=== PATIENT | male | born 1950 | race Caucasian/White ===

== ENCOUNTER 2017-03-18 09:33 | Inpatient (IN) ==
[2017-03-18 10:46] LABS: URINE CULTURE NEEDED? NO; URINE MICRO REVIEW NEEDED? NO; URINE SOURCE CLEAN CATCH
[2017-03-18 10:53] LABS: BILIRUBIN URINE NEGATIVE (NEGATIVE); BLOOD URINE NEGATIVE (NEGATIVE); COLOR YELLOW; GLUCOSE URINE NEGATIVE (NEGATIVE); LEUKOCYTES URINE NEGATIVE (NEGATIVE); NITRITE URINE NEGATIVE (NEGATIVE); PROTEIN URINE TRACE mg/dL (NEGATIVE); SP GRAVITY URINE 1.019; TURBIDITY URINE CLEAR (CLEAR); UROBILINOGEN URINE NORMAL (NORMAL)
[2017-03-18 10:54] LABS: UR EPITHELIAL CELLS <10 /HPF (<10); URINE BACTERIA NEGATIVE /HPF; URINE RBC <10 /HPF (<10); URINE WBC <10 /HPF (<10)
[2017-03-18] MEDS ORDERED: NS 1,000 ML IV ONE (14:24)
[2017-03-18] MEDS ORDERED: ZOFRAN IV ONE (15:12)
[2017-03-18 15:31] LABS: MANUAL DIFF NEEDED? NO
[2017-03-18 15:33] LABS: BASO% 0.7 % (0.0-0.8); EOS# 0.13 X1000 (0.0-0.7); EOS% 1.7 % (0.0-10.0); HEMATOCRIT 35.8 % (42.0-52.0); HEMOGLOBIN 11.9 g/dL (14.0-18.0); IMM GRAN# 0.06 X1000 (0.0-0.04); IMM GRAN% 0.8 % (0.0-0.5); LYMPH# 2.33 X1000 (1.2-3.4); LYMPH% 30.6 % (20.5-51.1); MCH 29.3 PG (27-31); MCHC 33.2 g/dL (33-37); MCV 88.2 FL (81-99); MONO# 1.04 X1000 (0.11-0.59); MONO% 13.7 % (1.7-9.3); MPV 10.8 FL (7.4-10.4); NEUT% 52.5 % (42.2-75.2); PLT 239 X1000 (130-400); RBC 4.06 XMIL (4.7-6.1)
--- NOTE | 2017-03-18 15:39 | Diag Imaging Result Doc PS360 ---
EXAM: FLAT/UPRIGHT ABD/1 VIEW CHEST HISTORY: abd pain TECHNIQUE: Three views COMPARISON: None. FINDINGS: The lungs are well expanded. Cardiomegaly. No pneumonia. No free air beneath the diaphragm. There is stool throughout the colon. The bowel loops are not dilated. No organomegaly. Mild degenerative spine changes. Several pelvic phleboliths. IMPRESSION: Mild constipation Electronically signed by Isac Narayanan 03/18/2017 3:36 PM
[2017-03-18 15:49] LABS: ALBUMIN 4.2 g/dL (3.5-5.0); CALCIUM 9.9 mg/dL (8.8-10.2); POTASSIUM 4.8 mmol/L (3.5-5.1); TOTAL BILIRUBIN 0.44 mg/dL (0.20-1.00); TOTAL PROTEIN 7.3 g/dL (6.3-8.3)
[2017-03-18 16:12] LABS: CK INDEX 1.1 (0.0-2.5); CK-MB 4.45 ng/mL (0.0-5.0)
--- NOTE | 2017-03-18 16:46 | PROVIDER DOCUMENTATION ---
This chart was entered by [place] Dee Scribe, acting as scribe for Roger Rueda PA. HPI-Abdominal Pain/GI Problem - General Chief Complaint: N/V/D Stated Complaint: POSS DEHYDRATION Time Seen by Provider: 03/18/17 14:51 Source: patient Allergies/Adverse Reactions: Patient Allergies Allergy/AdvReac Type Severity Reaction Status Date / Time No Known Allergies Allergy Verified 03/09/17 12:03 Home Medications: Home Medication List Medication Instructions Recorded Confirmed Last Taken Type Aspirin [Aspir-Low] 81 mg PO DAILY 03/09/17 03/18/17 03/09/17 08:00 History Hydrocodone/Acetaminophen [[place] 1 each PO Q6H PRN #20 tablet 03/09/17 03/18/17 Unknown Rx 5-325 Tablet] Lisinopril/Hydrochlorothiazide 1 each PO DAILY 03/09/17 03/18/17 03/09/17 08:00 History [Lisinopril-Hctz 20-25 mg Tab] Metformin HCl 1,000 mg PO DAILY 03/09/17 03/18/17 03/09/17 08:00 History Ondansetron HCl [Zofran] 4 mg PO Q8H PRN #15 tablet 03/09/17 03/18/17 Unknown Rx SIMVAstatin [Zocor] 20 mg PO DAILY 03/09/17 03/18/17 03/09/17 08:00 History - History of Present Illness-ABD Nature of Presenting Problems: 66 yo M presents to ED with cc of n/v/d x 1 week. Pt denies abdominal pain. Pt reports he recently began multiple new medications for his diabetes. Pt was sent to ED by primary care doctor for evaluation for dehydration. Pt was treated 2 weeks ago for a uretal stone. He denies fever, chest pain, and shortness of breath. Upon arrival to ED, pt appears nontoxic. Quality of Pain: reports: none Severity in ED: reports: mild Onset/Duration: reports: abrupt, 1 week ago Timing: reports: still present Activities at Onset: reports: other (new diabetes medication) Exposure to sick contacts?: No Modifying Factors: improves with: analgesics Associated Symptoms: denies: back/neck pain, chest pain, fever/chills, genitourinary problems, shortness of breath Dark Stools Present?: reports: none noticed Rectal Bleeding: reports: none Review of Systems - Adult - REVIEW OF SYSTEMS - ADULT Constitutional: reports: no symptoms reported. denies: chills, fever Eyes: reports: no symptoms reported. denies: dry eyes, redness Ears, Nose, Mouth & Throat: reports: no symptoms reported. denies: sinus problem, throat pain Cardiovascular: reports: no symptoms reported Respiratory: reports: no symptoms reported. denies: cough, shortness of breath Gastrointestinal: reports: diarrhea, nausea, vomiting. denies: abdominal pain Genitourinary: reports: no symptoms reported. denies: dysuria, flank pain, hematuria Musculoskeletal: reports: no symptoms reported. denies: back pain, neck pain Integumentary: reports: no symptoms reported. denies: hives, rash Neurological: reports: no symptoms reported. denies: dizziness/vertigo, headache/migraines Psychiatric: reports: no symptoms reported. denies: anxiety, depression Endocrine: reports: no symptoms reported. denies: cold intolerance, heat intolerance Hematologic/Lymphatic: reports: no symptoms reported. denies: blood clots, low blood count Allergic/Immunologic: reports: no symptoms reported. denies: allergic reactions , food allergy All Other Systems: Reviewed and Negative Past History - Adult - PAST MEDICAL HISTORY-ADULT Review of Records: reports: Old Records Reviewed, Nursing Assessment Review, Medications Reviewed Major Childhood Illnesses: reports: denies history Cardiovascular: reports: HTN Respiratory: reports: denies history Gastrointestinal: reports: denies history Obstetrical/Gynecological: reports: denies history Genitourinary: reports: denies history Musculoskeletal: reports: denies history Neurological: reports: denies history Endocrine/Immune: reports: Diabetes Other Conditions: reports: denies history - PRIOR SURGERIES/PROCEDURES Surgical/Procedure History: reports: reviewed, not pertinent, hernia repair - IMMUNIZATION STATUS Childhood Immunizations: See Nurse Assessment Flu Vaccine: See Nurse Assessment - FAMILY HISTORY Family History: reviewed, not pertinent Physical Exam-General - PHYSICAL EXAM-ADULT Initial Vital Signs Reviewed: Yes - CONSTITUTIONAL General Appearance: appears well, alert, no apparent distress - EYES Eyes: PERRL/EOMI, pink conjunctivae - HEAD, EARS, NOSE, MOUTH & THROAT HENMT: normocephalic/atraumatic, moist mucous membranes - NECK Neck: non-tender, full range of motion, supple - RESPIRATORY Respiratory: chest non-tender, lungs clear, normal breath sounds - CARDIOVASCULAR Cardiovascular: normal peripheral pulses, regular rate, rhythm, no edema - GASTROINTESTINAL (ABDOMEN) Abdominal Exam: normal bowel sounds, non tender, soft - LYMPHATIC Lymphatic: no adenopathy - MUSCULOSKELETAL Back Exam: normal inspection, no CVA tenderness, no vertebral tenderness Extremity: normal range of motion, non-tender, normal gait - SKIN Integumentary: normal color, normal turgor - NEUROLOGIC Neurologic: grossly normal, no motor/sensory deficits - PSYCHIATRIC Psych/Mental Status: normal mood/affect, normal thought content, normal thought process, oriented x 3 Progress - PLAN OF CARE/RESULTS Progress/Plan/Lab Results: Vital Signs - 8 hr 03/18/17 10:20 Temperature 98.6 F Pulse Rate 98 H Respiratory Rate 20 Blood Pressure 109/67 O2 Sat by Pulse Oximetry 100 Laboratory Results - last 24 hr 03/18/17 10:37 Urine Source CLEAN CATCH Urine Color YELLOW Urine Turbidity CLEAR Urine pH 5.0 Ur Specific [place] 1.019 Urine Protein TRACE A Ur Glucose (Stick) NEGATIVE Ur Ketones (Stick) NEGATIVE Urine Blood NEGATIVE Urine Nitrite NEGATIVE Urine Bilirubin NEGATIVE Urobilinogen Dipstick NORMAL Urine Leukocytes NEGATIVE Urine WBC (Auto) <10 Urine RBC (Auto) <10 U Epithel Cells (Auto) <10 Urine Bacteria (Auto) NEGATIVE Orders Category Date Time Status IV Insertion ORDERED Care 03/18/17 14:24 Active flat [FLAT/UPRIGHT ABD/1 VIEW CHEST] [RAD] Stat Exams 03/18/17 15:10 Ordered CBC WITH ELECTRONIC DIFF [HEME] Stat Lab 03/18/17 15:09 Ordered CK PROFILE [SP CHEM] Stat Lab 03/18/17 15:12 Ordered COMPREHENSIVE METABOLIC PANEL [CHEM] Stat Lab 03/18/17 15:09 Ordered LIPASE [CHEM] Stat Lab 03/18/17 14:52 Ordered TROPONIN T Stat Lab 03/18/17 15:12 Ordered UA NIMS W/REFLEX CULT [URINALYSIS] Stat Lab 03/18/17 10:37 Completed 0.9% Sodium Chloride Inj [Ns] 1,000 ml Med 03/18/17 14:24 Discontinued IV 999 mls/hr Ondansetron [Zofran] Med 03/18/17 15:12 Discontinued 4 mg IV NOW ONE EKG [EKG] Stat Ther 03/18/17 15:12 Ordered Medical decision making: pt here for nausea and vomiting. He has elevated cr and bun as well as elevated trop. will admit for hydration and serial troponins to r/u angina equivalent. Case and plan of care discussed with Dr. Galdamez. Result Diagrams: 03/18/17 12:00 03/18/17 12:00 - CONSULTS/PCP/HOSPITALIST Notification #1 *Consult/PCP/Hospitalist*: [employer] for Dr. Grier Time Discussed: 16:41 Consult Disposition: Admit #2 Consult: Dr. Espinoza Time Discussed: 15:00 Consult Disposition: other (requesting for pt to be admitted.) Departure - Departure Date of Disposition Decision: 03/18/17 Time of Disposition Decision: 16:42 DIAGNOSIS: Dehydration, Elevated troponin Nausea and vomiting Qualifiers: Vomiting type: unspecified Vomiting Intractability: non-intractable Qualified Code(s): R11.2 - Nausea with vomiting, unspecified Disposition: ADMITTED INPATIENT 09 Certified Medical Emergency: Emergent Condition: Stable Referrals and Follow-Ups: Hernandez Espinoza MD [Primary Care Provider] - - Critical Care Note This patient required my direct & personal management of CC.: No Attestation - Physician/ MUKUND Attestation Patient care was provided by Advanced Practice Provider:: No Advanced Practice Provider:: Roger Rueda The physician spent face to face time with patient:: No Advanced Practice Provider documentation review:: Supervising physician onsite and consulted in the evaluation and care of this patient. The physician did not have a face to face encounter with the patient. This chart was documented by the indicated scribe, (Argent[place] Dee Scribe) and accurately reflects the services I performed and decisions made by me, Roger Rueda PA, as attested by the provider's signature.
[2017-03-18] MEDS ORDERED: NS 1,000 ML IV SCH (18:45)
[2017-03-18] MEDS: PROTONIX IV SCH (18:53)
[2017-03-18] MEDS: NS 1,000 ML IV SCH (18:53)
[2017-03-18 18:59] LABS: UR CREAT RANDOM 309.2 mg/dL (14-26)
--- NOTE | 2017-03-18 19:01 | HISTORY AND PHYSICAL ---
PRIMARY CARE PHYSICIAN: Dr. Hernandez Espinoza. CHIEF COMPLAINT: Abdominal pain, nausea vomiting and weakness. HISTORY OF PRESENT ILLNESS: Mr. Herrera is a 66-year-old, male with a history of type 2 diabetes, hypertension, gout and apparent CKD who was sent to the ER by Dr. Hernandez Espinoza for 2 months of worsening symptoms. The patient's symptoms began around 2 months ago when he was started on a host of new medications for diabetes. Apparently, his blood sugar was fairly out of control and he was started on some novel antidiabetics and increase in his metformin. Since that time, he has had frequent nausea, vomiting and diarrhea and abdominal pain. Interestingly, he did have a kidney stone which he was seen in the ER for about 3 weeks ago, at which time he was discharged home with pain medicine and Flomax, the day after that he passed the stone on his own and is supposed to follow up with Dr. Horan next month. However, over the past 2 weeks the patient has had worsening weakness, vomiting and diarrhea along with abdominal pain, mostly in the left upper quadrant. He is unable to really eat or drink anything without throwing up. He does report a 30-pound weight loss in the past 2 months. He has seen Dr. Espinoza multiple times in office for evaluation. Today Dr. Espinoza felt that the patient needed to come to the ER because he looked "jaundiced" and for having continued symptoms. He also reports that he has had left foot drop and new onset of generalized tremors. He denies any loss of consciousness or visual changes. No left upper extremity weakness. He denies any chest pain or shortness of breath. When he got to the ER today, labs and diagnostics were done. He was found to have a creatinine of 2 which his baseline looks to be around 1.6 or 1.7. Troponin was obtained and was mildly elevated at 0.091; however, the patient denies any chest pain or shortness of breath. His EKG did not show anything acute as well. We are now going to admit him for further treatment and evaluation. PAST MEDICAL HISTORY: 1. Diabetes mellitus. 2. Hypertension. 3. Gout. 4. Hyperlipidemia. 5. CKD. 6. History of kidney stones, most recently passed on his own. SURGICAL HISTORY: He has had a hernia repair, back surgery and right hand surgery. SOCIAL HISTORY: Patient denies tobacco, alcohol or drug use. He is . His and daughter are at the bedside. He does drive a school bus. FAMILY HISTORY: Noncontributory. REVIEW OF SYSTEMS: Fourteen-point review of systems obtained and found to be negative with the exception of the HPI. ALLERGIES: No known drug allergies. HOME MEDICATIONS: Aspirin 81 mg daily. [place] as needed for pain. Lisinopril/ hydrochlorothiazide 1 daily. Metformin 1000 mg daily. Zofran 4 mg every 8 hours as needed. Zocor 20 mg daily. PHYSICAL EXAMINATION: VITAL SIGNS: Blood pressure is 109/67, heart rate is 98, respiratory rate is 20 , O2 saturation is 100% on room air. Temperature is 98.6 degrees. GENERAL: This is a well-developed, well-nourished, male, lying in hospital bed in no acute distress. NEUROLOGIC: The patient is awake, alert, and oriented. He follows commands without focal deficits. HEENT: Head is atraumatic, normocephalic. His pupils are equal, round, and reactive to light. Oral mucosa is a bit dry. Trachea is midline. There is no JVD. CHEST: Clear to auscultation bilaterally. CARDIOVASCULAR: Regular rate and rhythm. S1-S2 is noted. No murmurs. GI: Soft, nondistended, nontender. Bowel sounds are active. EXTREMITIES: Trace edema bilaterally. Pulses 1+. No clubbing or cyanosis. DIAGNOSTIC DATA: Abdomen x-ray shows mild constipation. Lungs are expanded. Cardiomegaly. No pneumonia. WBC 7.61, hemoglobin 11.9, hematocrit 35.8, platelet count is 239, 000. Sodium 138, potassium 4.8, chloride 98, CO2 25, anion gap 15, BUN 44, creatinine 2, glucose 102, calcium 9.9, bilirubin 0.4, AST 20, ALT 20, alkaline phosphatase 79, CK 422, troponin 0.091. UA is negative. ASSESSMENT AND PLAN: 1. Nausea, vomiting, diarrhea: Unclear as to the etiology. We are going to check a CT of the abdomen and pelvis and stop his new anti diabetic medications. We will also check stool studies and hydrate the patient along with p.r.n. antiemetics. If the patient has no resolution in symptoms, we would consider gastrointestinal consultation. 2. Acute kidney injury on apparent chronic kidney disease: We are going to check a CT of the abdomen and pelvis to rule out any obstructive uropathy. Check urine studies and hydrate. He is on metformin and hydrochlorothiazide and valsartan, which are all nephrotoxic. We will discontinue these medications and follow. If no resolution or worsening of creatinine, would consider Renal consultation. 3. Elevated troponin: The patient denies any chest pain or shortness of breath. We will check an echocardiogram as he does have cardiomegaly on chest x-ray. 4. Diabetes mellitus: We will check hemoglobin A1c in the morning and add pattern sugars and sliding scale insulin. 5. Hypertension: We will add p.r.n. medications if needed for his blood pressure as his current medications are nephrotoxic. 6. Deep vein thrombosis prophylaxis with heparin given his renal failure. 7. New onset of tremors and left footdrop. We are going to check B12, folate, TSH, and we will also check a head CT. Further recommendations to follow. I have personally performed a face to face diagnostic evaluation on this patient , also I reviewed this patient lab work and, images and vital signs, This patient states that he has been loosing wt, about 30 -35 pounds in 2 months , apparently all the symptoms started after using a new medication for diabetes I will hydrate the patient and then I will involve GI, he needs and upper and lower endoscopy done, Dr Raymond Tompkins Dictated by CARLI Koch for Raymond Foreman MD cc: CARLI Koch MD Micah A. Howard, MD MTDD
--- NOTE | 2017-03-18 20:09 | Diag Imaging Result Doc PS360 ---
CT HEAD W/O CONTRAST - 03/18/2017 INDICATION: TREMORS TECHNIQUE: A CT dose reduction protocol was used. COMPARISON: None FINDINGS: There is some mild periventricular white matter chronic microvascular disease. No intracranial mass or hemorrhage. The skull is intact. The sinuses, mastoids, and middle ears are clear. IMPRESSION: Negative exam. Electronically signed by Gil Benites 03/18/2017 8:07 PM
--- NOTE | 2017-03-18 20:16 | Diag Imaging Result Doc PS360 ---
CT ABDOMEN/PELVIS W/O CONTRAST - 03/18/2017 INDICATION: tremors, weight loss, abdominal pain, foot drop TECHNIQUE: A CT dose reduction protocol was used. COMPARISON: 03/09/2017 FINDINGS: No radiodense renal stones. No hydronephrosis or hydroureter. No bowel obstruction or inflammation. Normal appendix. Urinary bladder, prostate, and rectum are normal. There are moderate degenerative changes of the spine. No acute or suspicious bony lesion. IMPRESSION: Negative exam. Electronically signed by Gil Benites 03/18/2017 8:13 PM
[2017-03-18] MEDS: HEPARIN SUBQ SCH (21:00)
[2017-03-18 21:32] LABS: HDL 37 mg/dL (35-55); LDL 33 mg/dL; MAGNESIUM 1.5 mg/dL (1.5-2.7); TRIGLYCERIDES 161 mg/dL (39-160); VLDL 32 mg/dL
[2017-03-18 21:46] LABS: FREE T4 1.16 ng/dL (0.93-1.70)
[2017-03-18 22:01] LABS: CK INDEX 0.9 (0.0-2.5); CK-MB 3.89 ng/mL (0.0-5.0)
[2017-03-19] MEDS: HUMALOG SUBQ SCH ×5 (00:34→20:37)
[2017-03-19 03:24] LABS: CK INDEX 0.9 (0.0-2.5); CK-MB 3.49 ng/mL (0.0-5.0)
[2017-03-19] MEDS: NS 1,000 ML IV SCH ×4 (05:12→23:47)
--- NOTE | 2017-03-19 05:24 | EKG Report ---
Test Performed on : 03/18/2017 4:05:14 PM Test Reason : CP Blood Pressure : / mmHG Vent. Rate : 086 BPM Atrial Rate : 086 BPM P-R Int : 168 ms QRS Dur : 092 ms QT Int : 378 ms P-R-T Axes : 018 -21 019 degrees QTc Int : 452 ms Normal sinus rhythm. Inferior infarct , age undetermined Abnormal ECG No previous ECGs available Unconfirmed Result
[2017-03-19 07:42] LABS: HEMOGLOBIN 10.1 g/dL (14.0-18.0); MCH 29.9 PG (27-31); MCHC 32.6 g/dL (33-37); MCV 91.7 FL (81-99); MPV 10.7 FL (7.4-10.4); RBC 3.38 XMIL (4.7-6.1)
[2017-03-19 08:22] LABS: FERRITIN 366 ng/mL (30-400)
--- NOTE | 2017-03-19 08:27 | Diag Imaging Result Doc PS360 ---
EXAM: US RENAL 2 (RETROPER) COMPLETE HISTORY: alex TECHNIQUE: COMPARISON: None. FINDINGS: The left kidney measures 10.9 x 4.7 x 4.6 cm. Normal renal echotexture and cortical thickness. No renal stone or hydronephrosis. No renal mass. The urinary bladder is moderately distended and appears normal. Prostate measures 2.9 x 4.4 cm. The right kidney measures 10.4 x 5.2 x 5.1 cm. Normal renal echotexture and cortical thickness. No renal stone or hydronephrosis. No renal mass. IMPRESSION: Normal renal ultrasound. Electronically signed by Isac Narayanan 03/19/2017 8:25 AM
[2017-03-19 08:31] LABS: ALBUMIN 3.7 g/dL (3.5-5.0); CALCIUM 8.4 mg/dL (8.8-10.2); POTASSIUM 4.5 mmol/L (3.5-5.1)
[2017-03-19] MEDS: HEPARIN SUBQ SCH ×2 (09:06→21:57)
--- NOTE | 2017-03-19 09:08 | ED EKG INTERP ---
This chart was entered by [place] Dee Scribe, acting as scribe for Roberto Galdamez MD. EKG Interpretation - EKG Time of EKG reading by physician:: 16:05 EKG Read and Signed by:: Roberto Galdamez EKG Interpretation (*Must complete 3 of following elements*): Abnormal Rate: 86 Rhythm: NSR [place]: normal Comments: inferior infarct, age undetermined - EKG # 2 Time of EKG reading by physician:: 16:51 EKG Read and Signed by:: Roberto Galdamez EKG Interpretation (*Must complete 3 of following elements*): Abnormal Rate: 89 Rhythm: NSR [place]: normal Comments: possible lateral infarct, age undetermined; inferior infarct, age undeter. Attestation - Physician/ MUKUND Attestation Patient care was provided by Advanced Practice Provider:: No The physician spent face to face time with patient:: Yes Advanced Practice Provider documentation review:: Supervising physician onsite and consulted in the evaluation and care of this patient. The physician did have a face to face encounter with the patient. This chart was documented by the indicated scribe, (Ar[place] Dee Scribe) and accurately reflects the services I performed and decisions made by me, Roberto Galdamez MD, as attested by the provider's signature.
--- NOTE | 2017-03-19 14:37 | CONSULTATION ---
DATE OF CONSULTATION: 03/19/2017 Mr. Herrera is 66 years old. He has noticed left footdrop and tremulousness, prompting request for neurology consultation. CHIEF COMPLAINT: Persistent nausea, vomiting, diarrhea, and poor appetite. He reports 35 pounds nonpurposeful weight loss in the last few months. A few months ago he noticed that he could not extend the left foot at the ankle. This has caused him to stumble a few times. He did fall once as he was getting up urgently to get to the bathroom and fell. In retrospect, he is not certain that he noticed the footdrop prior to that fall. He has not had any more falls. He reports back pain became very prominent with pain traveling into the right leg and possibly some transient weakness or numbness in the right leg about 20 years ago. That was improved following his surgery for disk problem. He does not recall having any left leg trouble before surgery. He thinks he might have had some symptoms in the left leg transiently after surgery, but nothing persistent. He is certain that he has never had footdrop before. He has noticed some shaking in the hands in recent months. This is equal on the left and right, mostly when he is active, particularly prominent with handwriting and with feeding. He and report similar but much more prominent tremor in his mother. He has a younger sister with similar tremor. He believes that maternal grandmother also had tremor. He had made some medication changes a few months ago and he believes tremor was noticed around that time. He added Invokana, added Trulicity, increased metformin then. Workup here includes labs showing BUN 44. Computer record shows BUN was 41 in 2013, 19 in 2012. He has mildly elevated blood sugars. His home medicines include p.r.n. hydrocodone and we do not have urine drug toxicology this admission. Noncontrast CT of the head this admission is reported unremarkable. On exam, Mr. Herrera is awake, alert, attentive. He is quite talkative. He has some trouble maintaining his train of thought, but he answered questions appropriately. Language function is intact. He is completely oriented. Speech is not dysarthric. I do not hear quivering or other essential tremor features in his voice. He has a tremor with action in both arms, most prominent in postural suspension, equal on the right and left. This is rapid tremor typical of action tremor. There is no resting tremor. There is no cogwheeling or rigidity. Strength is normal in the arms and in the right leg. I can overcome the left anterior tibialis, grading 4/5, left extensor hallucis 3/5, left peroneus longer 4/5. Tone is normal and symmetric in the limbs. Reflexes are 2+ at the right knee, 1+ at the left knee, absent at the ankles. Plantar response is silent bilaterally. Proprioception is good at the great toe MTP joint bilaterally. I did not test his gait. He did well on [id number] testing. Sensation is intact to brief testing over the hands. Power is normal in the intrinsic hand muscles. Palpation in the left popliteal fossa is unremarkable. He has a little bit of discomfort, but no reproducible Tinel sign and I did not palpate a thickened peroneal nerve. Right popliteal fossa is unremarkable. Feet are warm. Straight leg raising is negative bilaterally. IMPRESSION: 1. Left footdrop. 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 This might have occurred when he fell, since he did not notice footdrop prior to that fall. Alternatively, he might have an idiopathic peroneal palsy. Peroneal palsy may be associated with rapid weight loss, autoimmune problems, medication effects. I encouraged him to be careful with gait and activities and to consider using the AFO. We can get physical therapy while he is in the hospital. If clinical course does not follow a pattern typical of peroneal palsy, we might consider lumbar imaging and EMG workup. 2. 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 Tremor has become prominent during the time that he has been dealing with other illness. We briefly discussed medicines for tremor and I do not think we need to add anything now. If his clinical pattern does not continue to be typical of action tremor, we can reconsider workup and management. 3. He is admitted with abdominal complaints and weight loss. That takes precedence over any of the neurologic issues. Thanks for asking me to see Mr. Herrera. cc: MD ANDREW Khoury III
--- NOTE | 2017-03-19 14:53 | PROGRESS NOTE ---
DATE: 03/19/2017 SUBJECTIVE: This patient is complaining of generalized weakness. So far, he has been having 2 watery bowel movements. As per the patient, apparently he started having diarrhea after starting taking 2 new treatments for his diabetes. Also, he has been complaining of weight loss, about 30- 35 pounds in the past 2 months. Also, for the past 2-3 months, he has been complaining of generalized tremors. Nothing makes this tremors worse or better at rest and also when he is performing some physical activity. I do not feel any contracture, but I will consult the Neurology department to evaluate this issue. OBJECTIVE: Vital Signs: Temperature 97.6 degrees, pulse 85, respiratory rate 18, blood pressure 145/81. Oxygen saturation 100% on room air. Head: Normocephalic. No trauma. PERRLA. Neck supple. No JVD. No masses. Central trachea. Chest: Clear to auscultation. No wheezing. No rales. Abdomen soft. Mild tenderness to palpation at the level of the periumbilical area. Extremities: No edema. No clubbing. No cyanosis. Neurological: The patient is alert and oriented x3. He has generalized tremors with and without movement. He can move all 4 extremities. LABORATORY: WBC 6.1, hemoglobin 10.1, hematocrit 31, platelets 191,000. Sodium 141, potassium 4.5, chloride 105, bicarbonate 23, BUN 36, creatinine 1.9, glucose 81, calcium 8.4, phosphorus 2.6. CK 389. ASSESSMENT AND PLAN: 1. Nausea, vomiting, and chronic diarrhea. Apparently everything started after taking 2 new medications for his diabetes. Apparently also, those medications were stopped, and he continued having diarrhea. Stool studies so far have been negative. Also, he has been complaining about weight loss. I have consulted Gastroenterology Department to evaluate his chronic diarrhea. Probably this patient will need upper and lower endoscopy. 2. Hmrjg-aa-pssqscj kidney disease. Stable. This is likely his baseline. 3. Mild elevated troponins, stable. He has no complaint of chest pain. No shortness of breath. 4. Diabetes mellitus. I will order a hemoglobin A1c, as per the , the last time it was around 10. We will continue with the same management for now. Blood sugar has been stable. 5. Hypertension. Blood pressure is stable. We will avoid nephrotoxic medications. 6. Deep vein thrombosis prophylaxis with heparin. 7. New onset of tremors. I will consult the Neurology Department. 8. B12, folate, and TSH within normal limits. Likely this represents essential tremors. CT of the head is normal as well. cc: Raymond Foreman MD
[2017-03-19] MEDS: SODIUM CHLORIDE 0.9% INJ SCH (18:37)
[2017-03-19] MEDS: PROTONIX IV SCH (18:37)
--- NOTE | 2017-03-20 03:20 | CONSULTATION ---
DATE OF CONSULTATION: 03/19/2017 PRIMARY CARE PROVIDER: Hernandez Espinoza M.D. PRIMARY HOSPITALIST: Raymond Foreman M.D. INDICATION FOR CONSULTATION: 1. Abdominal pain. 2. Nausea with vomiting. 3. Weakness. HISTORY OF PRESENT ILLNESS: The patient is a 66-year-old, white male who reports the onset of diarrhea after initiating therapy for diabetes mellitus. He reports 2 months of persistent nausea with vomiting, diarrhea, and weakness. He also reports diffuse abdominal pain. Because of his weakness and persistent diarrhea, we were asked to participate in his care. PAST MEDICAL HISTORY: 1. Diabetes. 2. Hypertension. 3. Gout. 4. Hyperlipidemia. 5. CKD. 6. Kidney stones. PAST SURGICAL HISTORY: 1. Hernia repair. 2. Back surgery. 3. Right hand surgery. REVIEW OF SYSTEMS: Remarkable in that the patient had the onset of symptoms 2 months ago. He has also had a similar episode a few years ago after going to [facility] to care for a family member. He was told at that time that he had a "nervous stomach". He was placed on a medication which he is currently out of. He notes that his symptoms resolved when he was taking the medication but he is unable to identify it. SOCIAL HISTORY: Remarkable in that the patient is . He denies tobacco, alcohol, or recreational drug use. FAMILY HISTORY: The patient notes that his father had a history of gastric cancer. The patient underwent a colonoscopy in 1984 that was reportedly normal. PHYSICAL EXAMINATION: Vital Signs: On exam, his blood pressure is 140/95, pulse 88, respirations 19, temperature of 97.9 degrees. HEENT: Unremarkable. Neck: His neck is supple. Chest: His chest is clear to auscultation with normal respiratory effort. Cardiovascular: Reveals regular rate and rhythm with no gallops or rubs. Abdominal Examination: Reveals normoactive bowel sounds. The abdomen is soft and nontender with no rebound or guarding. Extremities: Bilaterally are negative for cyanosis, clubbing, or edema. OBJECTIVE DATA: Reveals a hemoglobin of 10.1 with hematocrit of 31 and a white count of 6.19. Platelet count is 191,000. Sodium is 141, potassium 4.5, chloride 105, CO2 of 23, BUN 36, creatinine 1.9 with a glucose of 81. Calcium is 8.4, phosphorus 2.6, albumin 3.7, vitamin B12 is 1712, and folate 14.9. IMPRESSION: 1. Nausea with vomiting. 2. Diarrhea. 3. Unplanned anemia. RECOMMENDATION: 1. The patient is currently unable to tolerate a bowel prep for a formal colonoscopy. Therefore, I recommend an EGD and colonoscopy. Orders have been written and consent has been signed. The risk and benefits as well as alternatives have been discussed. 2. Because of his persistent diarrhea, please check stool electrolytes, pH, osmolality. Please also check fat soluble and water soluble vitamin levels. 3. His current studies for evidence of infection have been negative. Therefore , no further testing for infection or C. difficile is recommended. 4. Continue Protonix 40 mg IV q.24 hours. 5. Consider a course of peppermint oil or IBgard in light of his abdominal pain , nausea with vomiting, and diarrhea. 6. Additional recommendations to follow based on his clinical course and his endoscopic findings. cc: MD Raymond Stanton MD Micah A. Howard, MD MTDD
[2017-03-20] MEDS: NS 1,000 ML IV SCH ×4 (03:58→19:54)
[2017-03-20] MEDS: HUMALOG SUBQ SCH ×4 (06:28→22:38)
[2017-03-20 07:27] LABS: HEMOGLOBIN 9.9 g/dL (14.0-18.0); MCH 29.1 PG (27-31); MCV 88.2 FL (81-99); MPV 10.5 FL (7.4-10.4); RBC 3.4 XMIL (4.7-6.1)
[2017-03-20 07:42] LABS: HEMOGLOBIN A1C 7.2 % (4.8-6.0)
[2017-03-20 07:53] LABS: ALBUMIN 3.3 g/dL (3.5-5.0); CALCIUM 8.2 mg/dL (8.8-10.2); POTASSIUM 3.8 mmol/L (3.5-5.1)
--- NOTE | 2017-03-20 11:10 | PROGRESS NOTE ---
DATE: 03/20/2017 Mr. Herrera is awake, alert, attentive, and appropriate. He has action tremor in the hands, about the same as yesterday. Left footdrop is unchanged. He has workup in progress for his chief complaint which is a GI problem. I told him again that once the GI problems are settled, we might consider looking into the etiology of the footdrop more carefully. The tremor seems to be clearly familial and does not require specific attention now. Thanks again for asking me to see Mr. Herrera. cc: Aba Patel III, MD
--- NOTE | 2017-03-20 13:31 | PROGRESS NOTE ---
DATE: 03/20/2017 SUBJECTIVE: This patient is feeling better today. He has still been having diarrhea. He will get an upper endoscopy and colonoscopy today. He is NPO. We will follow the basting marker's recommendations. OBJECTIVE: Vital Signs: Temperature 97.5 degrees, pulse 77, respiratory rate 18, blood pressure 133/88, oxygen saturation 100% on room air. HEENT: Head normocephalic. No trauma. PERRLA. Neck: Supple. No JVD. No masses. Central trachea. Chest: Clear to auscultation. No wheezing. No rales. Abdomen: Soft. Mild tenderness to palpation at the level of the periumbilical area. Extremities: No edema. No clubbing. No cyanosis. Neurological: The patient is alert and oriented x3. No focal deficits. LABORATORY: WBC 4.9, hemoglobin 9.9, hematocrit 30, platelets 197,000. Sodium 142, potassium 3.8, chloride 105, bicarbonate 20, BUN 21, creatinine 1.3, glucose 90, hemoglobin A1c 7.2, calcium 8.2, phosphorus 2.3, albumin 3.3. ASSESSMENT AND PLAN: 1. Nausea, vomiting, and chronic diarrhea. He is still having diarrhea. He denies nausea and vomiting today. He is feeling better. He will have an upper and lower endoscopy done today by Dr. Klein. 2. Acute on chronic kidney disease. Stable. Actually his kidney function is getting better. 3. Mildly elevated troponins, stable. He is not complaining of chest pain or shortness of breath. 4. Type 2 diabetes. Hemoglobin A1c is 7.2. For now we will continue with the same management. 5. Hypertension. Blood pressure is stable. Continue to monitor. 6. Deep vein thrombosis prophylaxis with heparin. 7. New onset of tremors. Neurology department on board. 8. B12, folate, and TSH within normal limits. CT scan of the head is normal as well. cc: Raymond Foreman MD
[2017-03-20] MEDS: PROTONIX IV SCH ×2 (16:14→19:11)
[2017-03-20] MEDS ORDERED: DIPRIVAN 1% ONE ×2 (16:44→17:28)
[2017-03-20] MEDS ORDERED: ROBINUL ONE (16:44)
[2017-03-20] MEDS ORDERED: XYLOCAINE-MPF 2% ONE (16:44)
[2017-03-20] MEDS: AUGMENTIN PO SCH (22:35)
[2017-03-21 06:43] LABS: HEMATOCRIT 29.8 % (42.0-52.0); MCH 30.1 PG (27-31); MCHC 33.6 g/dL (33-37); MCV 89.8 FL (81-99); MPV 10.1 FL (7.4-10.4); RBC 3.32 XMIL (4.7-6.1)
[2017-03-21 07:08] LABS: ALBUMIN 3.5 g/dL (3.5-5.0); CALCIUM 8.2 mg/dL (8.8-10.2); POTASSIUM 3.5 mmol/L (3.5-5.1)
[2017-03-21] MEDS: HUMALOG SUBQ SCH ×4 (07:38→23:55)
--- NOTE | 2017-03-21 10:43 | PROGRESS NOTE ---
DATE: 03/21/2017 I discussed with attentive at the bedside. She reports no change in his tremor and left foot drop. We reviewed discussion of potential explanations for these problems. He has GI workup in progress. I do not think we need to do anything urgently while hospitalized for workup of these neurologic problems. He will let me know if foot drop gets worse, if he develops new deficit or if tremor becomes more prominent. I will see him as an outpatient when needed. Thanks for asking me to see Mr. Herrera. cc: Aba Patel III, MD
[2017-03-21] MEDS: AUGMENTIN PO SCH ×2 (11:07→23:55)
[2017-03-21] MEDS: NS 1,000 ML IV SCH ×3 (11:07→17:59)
--- NOTE | 2017-03-21 11:29 | Diag Imaging Result Doc PS360 ---
EXAM: GASTRIC EMPTYING HISTORY: nausea with vomiting TECHNIQUE: 540 uCi technetium sulfur colloid taken in an egg biscuit COMPARISON: None. FINDINGS: Imaging for two hours performed. The T 1/2 is calculated to be four hours and 25 minutes. This falls well below the normal range. IMPRESSION: Delayed gastric Electronically signed by Isac Narayanan 03/21/2017 11:27 AM
--- NOTE | 2017-03-21 14:22 | PROGRESS NOTE ---
DATE: 03/21/2017 SUBJECTIVE: This patient is feeling better today. He is having no episodes of diarrhea today, but he states that he has not been eating yet. Yesterday, he had an upper and lower endoscopy done. After the procedure, he was placed on antibiotics. Pending final reports and recommendations. OBJECTIVE: Vital Signs: Temperature 98 degrees, pulse 74, respiratory rate 18, blood pressure 138/77, oxygen saturation 99 on room air. HEENT: Head is normocephalic. No trauma. PERRLA. Neck supple. No JVD. No masses. Central trachea. Chest clear to auscultation. No wheezing. No rales. Abdomen is soft, mild tenderness to palpation at the level of the periumbilical area. Extremities: No edema. No clubbing. No cyanosis. Neurological: The patient is alert. He is oriented x3. He has upper extremity tremors, mild left foot drop. LABORATORY: WBC 6.2, hemoglobin 10, hematocrit 29.8, platelets 187,000. Sodium 141, potassium 3.5, chloride 107, bicarbonate 20, BUN 13, creatinine 1.3, glucose 76, calcium 8.2, phosphorus 2.4, albumin 3.5. ASSESSMENT AND PLAN: 1. Nausea, vomiting, and chronic diarrhea. Nausea and vomiting much better. No diarrhea today. Yesterday, he had an upper and lower endoscopy done by Dr. Klein, and after that procedure, she started this patient on antibiotics, pending final recommendations. 2. [id number] kidney disease. Stable. Actually, I think this is his baseline. 3. Mildly elevated troponins, stable. He has no complaint of chest pain. No shortness of breath. 4. Type 2 diabetes. Hemoglobin A1c 7.2. For now, we will continue with the same management. 5. Hypertension. Blood pressure is stable. Continue to monitor. 6. Deep vein thrombosis prophylaxis with heparin. 7. New onset tremors. Neurology on board. 8. B12, folate, and TSH within normal limits. We asked for a gastric emptying study today with results of delayed gastric emptying. cc: Raymond Foreman MD
[2017-03-21] MEDS: SODIUM CHLORIDE 0.9% INJ SCH (17:57)
[2017-03-21] MEDS: PROTONIX IV SCH (17:57)
[2017-03-21] MEDS: BISMATROL PO PRN (20:06)
--- NOTE | 2017-03-21 23:58 | PROGRESS NOTE ---
DATE: 03/21/2017 SUBJECTIVE: Overnight the patient was placed on IV Protonix for treatment of his erosive gastritis and oral Augmentin for treatment of the nonspecific acute colitis found on endoscopy on 03/20/2017. He reports that the nausea has improved significantly. He denies vomiting. His stools remain diarrheal but are much thicker than when he was admitted. He underwent a gastric emptying study today that confirmed the diagnosis of diabetic gastroparesis. His T 1/2 emptying time was 4 hours and 25 minutes. Otherwise the patient denies symptoms. OBJECTIVE: On exam, his blood pressure is 155/85, pulse 69, respiration 18, temperature of 98.0 degrees. OBJECTIVE DATA: Remarkable for hemoglobin of 10.0 with hematocrit of 29.8 and a white count of 6.21. Has 187,000 platelets. Sodium is 141, potassium 3.5, chloride 107, CO2 20, BUN 13, creatinine 1.3 with a glucose of 76. His calcium is 8.2, phosphorus 2.4 and albumin 3.5. IMPRESSION: 1. Acute erosive gastritis. 2. Diabetic gastroparesis. 3. Acute nonspecific enterocolitis. RECOMMENDATION: 1. Continue Protonix 40 mg IV q.12 hours for now. Over the next 24-48 hours it would be reasonable to transition him to oral omeprazole 40 mg daily. 2. Continue Augmentin 875 mg p.o. b.i.d. I anticipate discharge when the patient is no longer having liquid stools. 3. Please advance his diet as tolerated. 4. The patient will need to undergo an elective outpatient colonoscopy which we will schedule following hospital discharge. 5. Because of the patient's diabetes and gastroparesis, I will meet with the patient and his to discuss the new Atkins for new low carbohydrate eating plan in the office. 6. Today I spent approximately 30 minutes at bedside reviewing and the pathophysiology of gastroparesis and its management. In addition, I was able to answer the family's questions regarding his care. 7. Will have the patient return to clinic in 2-3 weeks to assess interval progress. cc: MD ANDREW Heredia
--- NOTE | 2017-03-22 00:58 | OPERATIVE NOTE ---
PROCEDURE DATE: 03/20/2017 REFERRING PHYSICIAN: Raymond Grier M.D. PRIMARY CARE PROVIDER: Hernandez Espinoza M.D. INDICATION FOR PROCEDURE: 1. Nausea with vomiting. 2. Diarrhea. 3. Diffuse abdominal pain. PROCEDURE PERFORMED: Esophagogastroduodenoscopy with biopsy. CONSENT: Informed consent was obtained from the patient prior to the procedure. The risks, benefits and alternatives were discussed. MEDICATION: The patient received monitored anesthesia care. PERFORMING PHYSICIAN: Lauren Klein M.D. ASSISTANTS: 1. [facility] 2. Monse Ferreira RN. 3. Rhonda Hernadez CRNA. 4. Jt Rosario M.D. (anesthesia). COMPLICATIONS: There were no complications. ESTIMATED BLOOD LOSS: Less than 1 mL. SPECIMENS REMOVED: 1. Duodenal biopsy. 2. Gastric biopsy. FINDINGS: After sedation was achieved, the upper endoscope was inserted to the 2nd portion of the duodenum. The hypopharynx appeared normal. The tubular esophagus appeared normal. The GE junction was measured at 45 cm from the incisors. In the gastric lumen, there was significant gastric stasis with greater than 300 mL of bilious secretions evacuated from the gastric lumen. Post evacuation there was erosive gastritis. The fundus appeared otherwise normal. The stomach appeared otherwise normal. Intubation of the duodenum revealed a normal duodenum as well as a normal ampulla Vater. Biopsies were taken and the lumen was decompressed. The scope was removed without incident. IMPRESSION: 1. Mild erosive gastritis. 2. Gastric stasis suggestive of gastroparesis. 3. Normal duodenum. RECOMMENDATION: 1. Await biopsy results. 2. Continue Protonix 40 mg IV q.12 hours. I would transition to omeprazole 40 mg p.o. daily when he is able to tolerate his diet. 3. I recommend a gastric emptying study as he has a history of diabetes. 4. Will proceed with a flexible sigmoidoscopy as previously scheduled. 5. Clinic follow up will be based on his on flexible sigmoidoscopy, biopsies and his clinical course. cc: MD Hernandez Christie MD [facility]
--- NOTE | 2017-03-22 01:22 | OPERATIVE NOTE ---
PROCEDURE DATE: 03/20/2017 REFERRING PHYSICIAN: Raymond Grier M.D. PRIMARY CARE PROVIDER: Hernandez Espinoza M.D. INDICATION FOR PROCEDURE: 1. Diarrhea. 2. Microscopic anemia. 3. Diffuse abdominal pain. PROCEDURE PERFORMED: Flexible sigmoidoscopy with biopsy. CONSENT: Informed consent was obtained from the patient prior to the procedure. The risks, benefits, and alternatives were discussed. MEDICATION: The patient received monitored anesthesia care. PERFORMING PHYSICIAN: Lauren Klein M.D. ASSISTANTS: 1. [facility] 2. Monse Ferreira RN. 3. Rhonda Hernadez CRNA. 4. Jt Rosario M.D. (anesthesia). COMPLICATIONS: There were no complications. ESTIMATED BLOOD LOSS: Less than 1 mL. SPECIMENS REMOVED: In jar #3, there were random colon biopsies in the area of acute colitis. FINDINGS: After the EGD was performed, the patient was repositioned. The upper endoscope was inserted to 35 cm. At 35 cm, there was bowel wall edema and scattered erosions , with purulent exudate, consistent with acute colitis. Because of the colonic spasm causing luminal narrowing, the procedure was terminated. Upon withdrawal, there were scattered ulcerations in area of inflammation, consistent with a nonspecific acute colitis. In the upper rectum , there were internal hemorrhoids. On retroflex, there were external hemorrhoids. After the exam was complete, the lumen was decompressed, and the scope was removed without incident. IMPRESSION: 1. Acute nonspecific colitis. 2. Grade 2 internal hemorrhoids. 3. Medium external hemorrhoids. RECOMMENDATION: 1. Await biopsy results. 2. Begin Augmentin 875 mg p.o. b.i.d. x14 days. 3. We will schedule the patient for an outpatient colonoscopy after the acute inflammatory process has been treated. 4. Because of his diarrhea history, please check his fat-soluble vitamins and his mineral levels. 5. Will have the patient return to clinic approximately 2-3 weeks after hospital discharge for interval reassessment. We will schedule his outpatient colonoscopy from the office. cc: MD Raymond Stanton MD Micah A. Howard, MD [facility]
[2017-03-22] MEDS: NS 1,000 ML IV SCH ×5 (02:38→23:40)
[2017-03-22] MEDS: HUMALOG SUBQ SCH ×3 (06:48→22:30)
[2017-03-22 07:02] LABS: MANUAL DIFF NEEDED? NO
[2017-03-22 07:07] LABS: BASO% 0.7 % (0.0-0.8); EOS# 0.22 X1000 (0.0-0.7); EOS% 5.4 % (0.0-10.0); HEMOGLOBIN 9.3 g/dL (14.0-18.0); IMM GRAN# 0.04 X1000 (0.0-0.04); LYMPH# 1.25 X1000 (1.2-3.4); LYMPH% 30.9 % (20.5-51.1); MCHC 33.2 g/dL (33-37); MCV 87.2 FL (81-99); MONO# 0.35 X1000 (0.11-0.59); MONO% 8.6 % (1.7-9.3); MPV 10.2 FL (7.4-10.4); NEUT% 53.4 % (42.2-75.2); PLT 190 X1000 (130-400); RBC 3.21 XMIL (4.7-6.1)
[2017-03-22 07:26] LABS: AGAP 15; BUN 7 mg/dL (8-22); CALCIUM 8.1 mg/dL (8.8-10.2); CHLORIDE 108 mmol/L (98-107); COSMO 284; POTASSIUM 3.6 mmol/L (3.5-5.1); SODIUM 144 mmol/L (136-145); TCO2 21 mmol/L (25-35)
[2017-03-22] MEDS: AUGMENTIN PO SCH ×2 (09:44→22:30)
[2017-03-22] MEDS: BISMATROL PO PRN (09:46)
--- NOTE | 2017-03-22 16:22 | PROGRESS NOTE ---
DATE: 03/22/2017 SUBJECTIVE: This patient is feeling better today. He is not having any episodes of diarrhea yet. Gastroenterology Department following this patient closely. Dr. Klein did an upper endoscopy and colonoscopy that basically showed erosive gastritis, signs of gastroparesis and nonspecific colitis. Likely I will discharge this patient tomorrow morning if Gastroenterology Department is okay with this. OBJECTIVE: Vital Signs: Temperature 97.8 degrees, pulse 74, respiratory rate 20, blood pressure 162/86, oxygen saturation 98 on room air. HEENT: Head normocephalic. No trauma. PERRLA. Neck: Supple. No JVD. No masses. Central trachea. Chest: Clear to auscultation. No wheezing. No rales. Abdomen: Soft. Mild tenderness to palpation at the level of the periumbilical area. Extremities: No edema. No clubbing. No cyanosis. Neurological: The patient is alert, oriented x3. He has upper extremity tremors and mild left foot drop. LABORATORY: WBC 4, hemoglobin 9.3, hematocrit 28, platelets 190,000. Sodium 144, potassium 3.6, chloride 108, bicarbonate 21 BUN 7, creatinine 1.2, glucose 82, calcium 8.1. Hemoglobin A1c 7.2. ASSESSMENT AND PLAN: 1. Nausea, vomiting and chronic diarrhea. Dr. Klein from Gastroenterology Department already did an upper and lower endoscopy that showed gastritis, signs of gastroparesis and nonspecific colitis. This patient was started on antibiotics, Augmentin that we are going to continue for 14 days. Also this patient we need to have a new colonoscopy done as an outpatient. 2. Acute on chronic kidney disease resolved. I think this is his baseline. 3. Mild elevated troponins, stable. He is not complaining of chest pain. No shortness of breath. 4. Type 2 diabetes with hemoglobin A1c of 7.2. For now, we will continue with the same management. Stable. 5. Hypertension. Continue with the same management. 6. Deep vein thrombosis prophylaxis with heparin. 7. New onset of tremors. Neurology Department already saw this patient. He will continue to follow with Neurology as an outpatient. 8. B12, folate and TSH within normal limits. 9. Gastroparesis. Aware. Gastroenterology Department is on board. cc: Raymond Foreman MD
[2017-03-22] MEDS: PROTONIX IV SCH ×2 (17:02→20:02)
[2017-03-22] MEDS: SODIUM CHLORIDE 0.9% INJ SCH (20:02)
--- NOTE | 2017-03-22 20:12 | PROGRESS NOTE ---
DATE: 03/22/2017 SUBJECTIVE: The patient is feeling significantly better today. The diarrhea has resolved. He is no longer nauseated as he is eating smaller meals more frequently over the course of the day. He has acute gastritis, gastroparesis and nonspecific colitis. He remains on IV Protonix and Augmentin. He is anxious and ready to go home. EXAM: His blood pressure is 162/86, pulse of 74, respiration 20, temperature of 97.8 degrees. The remainder of his exam was deferred. OBJECTIVE DATA: Reveals a hemoglobin of 9.3 with hematocrit of 28.0 and a white count of 4.05. He has 190,000 platelets. Sodium is 144, potassium 3.6, chloride 108, CO2 21, BUN 7, creatinine 1.2 with a glucose of 82 and a calcium of 8.1. His thiamine is 70. His vitamin C is 0.3. RECOMMENDATION: 1. Continue Augmentin for a total of 10 days for treatment of the nonspecific enterocolitis. 2. Will schedule the patient for outpatient colonoscopy in the next 1-2 months allowing time for complete healing of his colon. 3. With regard to his gastroparesis, I would advance his diet to a low-fat diet. 4. He should return to our office to have diet instruction for gastroparesis diet. 5. We discussed with the patient the importance of low carbohydrate living. I will also instruct the patient and his on a low carbohydrate diet that he can maintain in order to control his diabetes. 6. Begin thiamine 100 mg daily as his thiamine level is at the low end of normal. 7. Begin vitamin C 500 mg p.o. b.i.d. for vitamin C deficiency. 8. From a GI perspective, he is stable for discharge. I will transition his Protonix to oral omeprazole 40 mg once daily. 9. Will have the patient return to clinic in the next 1-2 weeks for diet instruction and interval reassessment. cc: MD Hernandez Christie MD MTDD
[2017-03-22] MEDS: VITAMIN C PO SCH (22:30)
[2017-03-23] MEDS: HUMALOG SUBQ SCH ×2 (06:03→12:47)
[2017-03-23] MEDS: NS 1,000 ML IV SCH ×2 (07:27→11:04)
[2017-03-23 07:49] VITALS: BP 145/76
[2017-03-23] MEDS: VITAMIN C PO SCH (08:43)
[2017-03-23] MEDS: AUGMENTIN PO SCH (08:43)
[2017-03-23] MEDS ORDERED: VITAMIN B-1 PO SCH (09:00)
--- NOTE | 2017-03-23 18:52 | DISCHARGE SUMMARY ---
ADMISSION DATE: 03/18/2017 DISCHARGE DATE: 03/23/2017 DISCHARGE DIAGNOSES: 1. Nonspecific enterocolitis. 2. Gastroparesis. 3. Chronic diarrhea. 4. [id number] kidney disease/resolved. 5. Mild elevated troponins, stable. 6. Type 2 diabetes with hemoglobin A1c of 7.2. 7. Hypertension. 8. New onset of tremors. CONSULTANTS: Gastroenterology Department Dr. Klein. Neurology Department, Dr. Patel. PROCEDURES PERFORMED: Gastric emptying study by Nuclear Medicine dated 2016. Impression: Delayed gastric emptying. Flexible sigmoidoscopy with biopsy. 1. Resolved acute nonspecific colitis. 2. Grade 2 internal hemorrhoids. 3. Medium external hemorrhoids. Upper endoscopy showed mild gastritis, gastric stasis suggestive of gastroparesis. HOSPITAL COURSE: A 66-year-old, male with a past medical history of type 2 diabetes, hypertension, gout, and CKD was sent to the ER by his primary doctor for 2 months of worsening symptoms. Apparently at that time, he started taking a new medication for his diabetes. Since that time, he has been having frequent diarrhea, vomiting, and nausea. However, over the past 2 weeks this patient has had worsening weakness, vomiting and more diarrhea with abdominal pain mostly at the level of the left upper quadrant. He is unable to really eat or drink anything without throwing up. Also, he does report that he has been losing weight about 30 pounds in the past 2 months as well. Apparently, also this patient has been having problems with left foot weakness and generalized tremors. In the emergency department, he was found to have an elevated troponin a creatinine of 2, and his baseline is around 1.6. Troponin was also mildly elevated to 0.09. However, this patient denied chest pain or shortness of breath. Normal EKG. This patient was admitted. We put this patient on IV fluids. This patient was evaluated by Gastroenterology Department and Urology Department. We did a gastric emptying study that showed delayed gastric emptying suggestive of gastroparesis. Also Dr. Klein from Gastroenterology Department did an upper endoscopy and also colonoscopy. This patient has a nonspecific colitis and gastritis as well. This patient was improving on a daily basis. Actually today, this patient is completely asymptomatic. No abdominal pain. No diarrhea today, and yesterday he had a bowel movement that was loose but not watery. This is why I decided to discharge this patient with a strict followup by Dr. Klein and also by his primary care doctor. If he continues to have his tremors and left foot weakness, he can go to Dr. Patel's office for evaluation. OBJECTIVE: Vital Signs: Temperature 98 degrees, pulse 64, respiratory rate 20 , blood pressure 145/76. O2 saturation 98 on room air. HEENT: Head normocephalic. No trauma. PERRLA. Neck: Supple. No JVD. No masses. Central trachea. Chest: Clear to auscultation. No wheezing. No rales. Abdomen: Soft. Mild tenderness to palpation at the level of the periumbilical area. Positive bowel sounds. No signs of peritoneal irritation. Extremities: No edema. No clubbing. No cyanosis. Mild weakness at the level of the left foot. Neurologic: The patient was alert and oriented x3. He has mild tremors at the level of the upper extremities. LABORATORY: No lab work done today, but glucose was 93. DISCHARGE MEDICATIONS: 1. Augmentin 875 mg p.o. twice a day for 8 days. He will complete 10 days of treatment. 2. Vitamin C 500 mg p.o. twice a day. 3. Thiamine 100 mg p.o. daily. 4. Lisinopril 10 mg p.o. daily. 5. Amlodipine 5 mg p.o. daily. 6. Omeprazole 40 mg p.o. daily. 7. Simvastatin 20 mg p.o. daily. 8. Aspirin 81 mg p.o. daily. 9. Metformin 1000 mg p.o. daily. 10. Ondansetron 4 mg p.o. every 8 hours as needed. 11. I recommended to stop hydrocodone/acetaminophen because of his gastroparesis. FOLLOWUP: Followup by Dr. Klein in 1-2 weeks, and he needs to get a new colonoscopy done in about 1-2 months. TIME: Time discharging this patient, 35 minutes. cc: Raymond Foreman MD [facility]
[2017-03-24] MEDS ORDERED: PRILOSEC PO SCH (07:00)
[2017-03-24] MEDS ORDERED: NORVASC PO SCH (09:00)
[2017-03-24] MEDS ORDERED: PRINIVIL PO SCH (09:00)
== END 2017-03-23 13:27 | disposition home or self-care (01) ==
LOC: ED 09:33 → 3N 09:34
PROVIDERS: ATTEND Internal Medicine